=== PATIENT | male | born 1955 | race Caucasian/White ===

== ENCOUNTER 2020-07-13 07:01 | Outpatient (REF) | payer BC, SELFPAY ==
[2020-07-13 08:14] LABS: Estimated Average Glucose 117 mg/dL; Hemoglobin A1c % 5.7 %
[2020-07-13 08:17] LABS: Cholesterol 123 mg/dL; HDL Cholesterol 40 mg/dL; LDL Cholesterol Calculated 63 mg/dl; Triglycerides 101 mg/dL
== END 2020-07-13 07:02 | disposition home or self-care (01) ==
LOC: HO.LAB 07:01
PROVIDERS: PCP Internal Medicine; Visit Provider Internal Medicine
DX: E78.00 Pure hypercholesterolemia, unspecified (principal); Z13.1 Encounter for screening for diabetes mellitus
CPT/HCPCS: 36415; 80061; 83036

== ENCOUNTER 2020-07-25 14:02 | Outpatient (REF) | payer BC, SELFPAY ==
--- NOTE | ~2020-07-25 | US_ITS ---
EXAMINATION: NONINVASIVE ASSESSMENT OF THE ARTERIES OF BOTH LOWER EXTREMITIES WITH PVR EXAM AND BILATERAL LOWER EXTREMITY DUPLEX CLINICAL INFORMATION: Claudication TECHNIQUE: Ankle pulse volume recordings, ankle pressure measurements and ankle brachial indices were obtained of the lower extremity arterial system bilaterally in addition to duplex Doppler techniques with wave form analysis and measurement of velocities in the common femoral, profunda femoral, superficial femoral, popliteal and tibial arteries. The study was performed only at rest. COMPARISON: None FINDINGS: a) AT REST: RIGHT LE. The right ankle-brachial index is: 1.3. Posterior tibial and dorsalis pedis pressures exceed 200 making ABIs unreliable. 2. Right ankle pressure: normal. 3. Right ankle PVR waveform: normal. 4. Right direct duplex Doppler findings: There is evidence of mild atherosclerotic disease with vessel wall calcification. * Common femoral artery: 134 cm/s, Diastolic flow reversal: Yes * Superficial femoral artery (proximal, mid, distal): 137, 151 and 112 cm/s, Diastolic flow reversal: Yes * Popliteal artery: 98 cm/s, Diastolic flow reversal: Yes * Posterior tibial artery: 109 cm/s, Diastolic flow reversal: Yes LEFT LE. The left ankle-brachial index is: 1.3. Posterior tibial and dorsalis pedis pressures exceed 200 making ABIs unreliable. 2. 2. Left ankle pressure: normal. 3. Left ankle PVR waveform: normal. 4. Left direct duplex Doppler findings: There is evidence of mild atherosclerotic disease and vessel wall calcification. * Common femoral artery: 129 cm/s, Diastolic flow reversal: Yes * Superficial femoral artery (proximal, mid, distal): 117, 138,123 cm/s, Diastolic flow reversal: Yes * Popliteal artery: 82 cm/s, Diastolic flow reversal: Yes * Posterior tibial artery: 107 cm/s, Diastolic flow reversal: Yes LACY Reference: * >0.97-1.25 = normal - no significant arterial disease * 0.75-0.96 = mild peripheral arterial disease * 0.5-0.74 = moderate peripheral arterial disease * <0.50 = severe peripheral arterial disease US/US arterial duplex LE BI IMPRESSION: There is no evidence of any hemodynamically significant lower extremity arterial disease by pressure, waveform or duplex Doppler criteria at rest. There are slightly elevated peak systolic velocity in left proximal superficial femoral artery. ABIs measure 1.3 bilaterally. Posterior tibial and dorsalis pedis pressures are greater than 200 making ABIs remained unreliable.
== END 2020-07-25 14:03 | disposition home or self-care (01) ==
LOC: HO.US 14:02
PROVIDERS: Visit Provider Internal Medicine
DX: I73.9 Peripheral vascular disease, unspecified (principal)
CPT/HCPCS: 93923; 93925

== ENCOUNTER 2021-07-14 10:23 | Outpatient (REF) | payer BC, SELFPAY ==
[2021-07-14 10:27] LABS: MANUAL DIFF FLAG NO
[2021-07-14 11:49] LABS: Appearance Urine CLEAR; Color Urine YELLOW; Glucose Urine UA NEG (NEG); Leukocyte Esterase Urine NEG (NEG); Nitrite Urine NEG (NEG); Urine Blood NEG (NEG); Urine Ketones NEG (NEG); Urine Protein NEG (NEG-TRACE)
[2021-07-14 11:56] LABS: Basophils Absolute Auto 0.1 X10*3/uL (0.0-0.2); Basophils Percent Auto 0.9 % (0-2); Eosinophils Absolute Auto 0.2 X10*3/uL (0.0-0.4); Eosinophils Percent Auto 2.7 % (0-4); Hematocrit 40.6 % (42.0-52.0); Hemoglobin 13.3 g/dl (14.0-18.0); Imm Gran Abs Auto 0.04 X10*3/uL (0.00-0.03); Imm Gran Pct Auto 0.5 % (0.0-0.4); Lymphocytes Absolute Auto 2.3 X10*3/uL (1.2-4.9); Lymphocytes Percent Auto 27.7 % (20-40); Mean Corpuscular HGB Conc 32.8 g/dl (31.0-36.0); Mean Corpuscular Hemoglobin 29.7 pg (27.0-33.0); Mean Corpuscular Volume 90.6 fL (80.0-98.0); Mean Platelet Volume 8.9 fL (9.4-12.4); Monocytes Absolute Auto 0.9 X10*3/uL (0.1-1.2); Monocytes Percent Auto 11.1 % (2-11); Neutrophils Absolute Auto 4.7 x10*3/uL (2.0-8.3); Neutrophils Percent Auto 57.1 % (45-73); Platelet Count 359 X10*3/uL (160-400); Red Blood Count 4.48 X10*6/uL (4.60-5.80); Red Cell Distribution Width 13.7 % (11.0-16.0); White Blood Count 8.2 X10*3/uL (4.8-10.8)
[2021-07-14 12:23] LABS: Estimated Average Glucose 117 mg/dL; Hemoglobin A1c % 5.7 %; PSA,Total (Free>4and<10) 0.37 ng/mL (0.00-4.00)
[2021-07-14 12:28] LABS: Alanine Aminotransferase 20 U/L (0-40); Albumin Level 4.4 g/dL (3.5-5.0); Alkaline Phosphatase 83 U/L (39-117); Anion Gap 13 (12-20); Aspartate Amino Transferase 14 U/L (5-37); Bilirubin Total 0.5 mg/dL (0.0-1.0); Blood Urea Nitrogen 17 mg/dL (9-16); Calcium 10.2 mg/dL (8.4-10.2); Carbon Dioxide 25 mmol/L (22-29); Chloride 98 mmol/L (96-108); Cholesterol 163 mg/dL; Estimated Glomerular Filt Rate > 60; Glucose Fasting 125 mg/dL (60-99); HDL Cholesterol 59 mg/dL; LDL Cholesterol Calculated 90 mg/dl; Potassium 4.8 mmol/L (3.3-5.1); Sodium 131 mmol/L (135-145); Total Protein 7.5 g/dL (6.5-8.0); Triglycerides 74 mg/dL
[2021-07-14 12:44] LABS: Microalbumin Urine < 5.0 mg/L
[2021-07-14 13:00] LABS: Vitamin D 25-OH Total 33.1 ng/mL (>30)
== END 2021-07-14 10:24 | disposition home or self-care (01) ==
LOC: HO.LNP 10:23
PROVIDERS: PCP Internal Medicine; Visit Provider Internal Medicine
DX: Z00.00 Encounter for general adult medical examination without abnormal findings (principal); I10 Essential (primary) hypertension; R73.03 Prediabetes; E55.9 Vitamin D deficiency, unspecified; Z12.5 Encounter for screening for malignant neoplasm of prostate
CPT/HCPCS: 80053; 80061; 81003; 82043; 82306; 83036; 84153; 85025

== ENCOUNTER 2023-10-22 07:39 | Day surgery (SDC) | payer MEDICARE, SELFPAY ==
[2023-10-20 14:54] VITALS: BMI 35.2
--- NOTE | 2023-10-21 14:27 | HO.ANESPROP2 ---
HPI - Anesthesia Eval Consult details Narrative: 68yo M for Colonoscopy FORMERLY [facility] Past Medical History Medical History (Updated 10/20/23 @ 14:58 by Anna Astudillo, RN) Elevated cholesterol HTN (hypertension) Surgical History Surgical History (Updated 10/20/23 @ 14:58 by Anna Astudillo, RN) History of total left knee replacement History of repair of hiatal hernia Hx of arthroscopy of left knee Hx of bilateral inguinal hernia repair H/O colonoscopy Social History Social History Patient Tobacco Use Status: Never used Tobacco Use of substances other than those prescribed or required for medical reasons: No Are you DNR?: No Advance Directives: No Advance Directives Information Provided: Yes Meds Allergies Allergy/AdvReac Type Severity Reaction Status Date / Time No Known Allergies Allergy Mild NONE Unverified 01/11/20 15:33 Home Medications ?Medication ?Instructions ?Recorded ?Confirmed ?Last Taken ?Type amlodipine 10 mg tablet 10 mg PO DAILY 10/20/23 10/20/23 Unknown History atorvastatin 40 mg tablet 40 mg PO DAILY 10/20/23 10/20/23 Unknown History lisinopril 10 mg tablet 10 mg PO DAILY 10/20/23 10/20/23 Unknown History multivitamin 1 tab PO DAILY 10/20/23 10/20/23 Unknown History vitamin B complex 1 tab PO DAILY 10/20/23 10/20/23 Unknown History Exam Height,Weight and Vital Signs: Height 5 ft 10 in Weight 111.13 kg Assessment and Plan Assessment Anesthesia Assessment: Chart Reviewed
[2023-10-22 08:28] VITALS: BMI 34.4
[2023-10-22 08:36] VITALS: BP 142/62; PULSE 60; RESP 16; TEMP 36.6; O2SAT 100
[2023-10-22] MEDS: Lactated Ringers 1,000 ML 100 ML IVCONT (08:57)
--- NOTE | 2023-10-22 09:29 | PC.NURSE ---
24hr update documented on paper.
[2023-10-22 10:34] VITALS: BP 123/65; PULSE 64; RESP 18; TEMP 36.1; O2SAT 98
--- NOTE | 2023-10-22 10:36 | PM.OP ---
Brief Operative Note Date of Service: 10/22/23 Pre-op diagnosis: Screening Post-op diagnosis: other (Diverticulosis) Procedure: Colonoscopy to the cecum and TI Surgeon: Costa Rosario MD Anesthesia: MAC Was an Palliative Care Specialist used for this Procedure?: No Estimated blood loss (mL): 0 Pathology: none sent Condition: stable Disposition: PACU
[2023-10-22 10:49] VITALS: BP 121/60; PULSE 59; RESP 18; TEMP 36.1; O2SAT 100
--- NOTE | 2023-10-22 11:21 | OP_ITS ---
DATE OF SERVICE: 10/22/2023 SURGEON: Costa Rosario MD INDICATIONS: Patient presents for evaluation of colorectal cancer screening. Full consent was obtained from him for this, including risks of bleeding and perforation. PREOPERATIVE DIAGNOSIS: Colorectal cancer screening. POSTOPERATIVE DIAGNOSIS: PROCEDURE PERFORMED: Colonoscopy to the cecum and terminal ileum. ESTIMATED BLOOD LOSS: COMPLICATIONS: ANESTHESIA: Medication used, monitored anesthesia care. ASSISTANTS: SPECIMENS: POSTOPERATIVE DIAGNOSES: Colorectal cancer screening, diverticulosis and internal hemorrhoids. DESCRIPTION OF PROCEDURE: The patient was placed in the left lateral decubitus position. The digital rectal exam revealed no abnormalities. The Olympus video pediatric colonoscope was entered into the rectum and advanced easily to the cecum. Once in the cecum, I did identify normal-appearing cecal pouch with appendiceal orifice and a normal-appearing ileocecal valve. The terminal ileum was cannulated and appeared normal. The scope was withdrawn back in the colon. The entire cecum and ileocecal valve appeared normal. Scope was then slowly withdrawn assessing all mucosal surfaces carefully. Preparation was excellent. I did not visualize any sign of polyps, colitis, nor angiodysplasia. There was a mild amount of sigmoid diverticulosis. In the rectum, scope was retroflexed, visualizing small internal hemorrhoids, but no other pathology. The rectal mucosa appeared normal. The scope was straightened and withdrawn from the patient. He tolerated the procedure well and was returned to the recovery area in stable condition. IMPRESSION: 1. Sigmoid diverticulosis. 2. Internal hemorrhoids. PLAN: Given the negative exam and negative family history, I would recommend a followup coloscopy in 10 years for further screening. He will otherwise see me on a p.r.n. basis. Costa Rosario MD RMW/COSTAL / [phone]
== END 2023-10-22 11:09 | disposition home or self-care (01) ==
PROVIDERS: Visit Provider Internal Medicine
PROC: 0DJD8ZZ Inspection of Lower Intestinal Tract, Via Natural or Artificial Opening Endoscopic (ICD-10-PCS; CPT 45378; principal; 2023-10-22 09:30)
DX: Z12.11 Encounter for screening for malignant neoplasm of colon (principal); K57.30 Diverticulosis of large intestine without perforation or abscess without bleeding; K64.8 Other hemorrhoids; I10 Essential (primary) hypertension; E78.00 Pure hypercholesterolemia, unspecified; Z79.02 Long term (current) use of antithrombotics/antiplatelets; Z79.899 Other long term (current) drug therapy
CPT/HCPCS: G0121; J2704